=== PATIENT | male | born 1970 | race Caucasian/White ===

== ENCOUNTER 2019-09-16 08:47 | Emergency (ER) | payer OTHER ==
[2019-09-16 09:20] LABS: Influenza A Molecular POSITIVE (Negative)
--- NOTE | 2019-09-16 09:45 | ED ---
Influenza-Like Illness - HPI Summary HPI Summary: Pt. is a 49 y.o male who presents to the ER for fever, chills, diarrhea, bodyaches, productive cough x 5 days. Pt. notes family members have been sick with similar sxs. No past hx. Sxs are mild in severity. No current modifying factors. - History of Current Complaint Chief Complaint: EDFluSymptoms Time Seen by Provider: 09/16/19 09:17 Hx Obtained From: Patient - Allergy/Home Medications Allergies/Adverse Reactions: Allergies Allergy/AdvReac Type Severity Reaction Status Date / Time No Known Allergies Allergy Verified 09/16/19 08:52 PMH/Surg Hx/FS Hx/Imm Hx Previously Healthy: Yes Infectious Disease History: No Infectious Disease History: Denies: Traveled Outside the [place] in Last 30 Days - Family History Known Family History: Positive: Non-Contributory - Social History Occupation: Employed Full-time Lives: With Family Alcohol Use: None Substance Use Type: Reports: Marijuana Smoking Status (MU): Never Smoked Tobacco Review of Systems Positive: Fever, Chills ENT: Negative Cardiovascular: Negative Positive: Cough Positive: Diarrhea. Negative: Abdominal Pain, Vomiting, Nausea Positive: Myalgia Skin: Negative Positive: Headache All Other Systems Reviewed And Are Negative: Yes Physical Exam Triage Information Reviewed: Yes Vital Signs On Initial Exam: Initial Vitals Temp Pulse Resp BP Pulse Ox 98.6 F 98 16 145/93 96 09/16/19 08:47 09/16/19 08:47 09/16/19 08:47 09/16/19 08:47 09/16/19 08:47 Vital Signs Reviewed: Yes Appearance: Positive: Well-Appearing - Pt. lying in bed in NAD. Skin: Positive: Warm, Dry Head/Face: Positive: Normal Head/Face Inspection Eyes: Positive: Normal, EOMI, SCOTT, Conjunctiva Clear ENT: Positive: Pharynx normal, TMs normal Neck: Positive: Supple. Negative: Nuchal Rigidity Respiratory/Lung Sounds: Positive: Clear to Auscultation, Breath Sounds Present. Negative: Rales, Rhonchi, Wheezes Cardiovascular: Positive: Normal, RRR Abdomen Description: Positive: Nontender, Soft Neurological: Positive: Normal, CN Intact II-III Psychiatric: Positive: Affect/Mood Appropriate Procedures - Sedation Patient Received Moderate/Deep Sedation with Procedure: No Diagnostics - Vital Signs Vital Signs Temp Pulse Resp BP Pulse Ox 09/16/19 08:47 98.6 F 98 16 145/93 96 - Laboratory Lab Results: Lab Results 09/16/19 Range/Units 08:54 Influenza A (Rapid) Positive H (Negative) Influenza B (Rapid) Not Reportable Lab Statement: Any lab studies that have been ordered have been reviewed, and results considered in the medical decision making process. Flu Symptom Course/Dx - Course Course Of Treatment: Positive flu. CXR ordered through triage and is negative for acute findings per radiology. Outside of tamiflu window. Discussed supporive care. Will f.u with [facility] if needed. Will return if sxs change or worsen. Pt. undertsands and agrees with plan. Work excuse given. - Diagnoses Differential Diagnosis/HQI/PQRI: Positive: Influenza, Pneumonia, Upper Respiratory Infection Provider Diagnoses: Influenza Discharge ED - Sign-Out/Discharge Documenting (check all that apply): Patient Departure - Discharge Plan Condition: Good Disposition: HOME Patient Education Materials: Influenza (ED) Forms: *Work Release Referrals: [facility] [Outside] Additional Instructions: Follow up with the [facility] if symptoms persist Increase fluids and rest Tylenol and Motrin for pain and fever as directed Return to ER if symptoms change or worsen - Billing Disposition and Condition Condition: GOOD Disposition: Home - Attestation Statements Provider Attestation: pt seen by midlevel provider independently, based on their assessment, it was not necessary to present the case to me but I was available for consultation. I did not form a physician-patient relationship with the patient. The chart however, has been reviewed. am signing this note strictly in an administrative capacity.
[2019-09-16 10:02] VITALS: BP 140/86
== END 2019-09-16 10:01 | disposition home or self-care (01) ==
LOC: ED 08:47
DX: J10.1 Influenza due to other identified influenza virus with other respiratory manifestations (principal); J98.11 Atelectasis
CPT/HCPCS: 71046; 99282